=== PATIENT | female | born 1980 | race Two or more races ===

== ENCOUNTER 2020-05-23 08:50 | Outpatient (CLI) | payer BC, SELFPAY ==
--- NOTE | ~2020-05-23 | MM_ITS ---
EXAMINATION: MM screening christine BI w natali HISTORY: Screening TECHNIQUE: Craniocaudal and mediolateral oblique 3-D tomosynthesis images were obtained and synthetic 2-D images were generated. CAD analysis was submitted and interpreted. COMPARISON: No prior mammogram is available for comparison at this institution. BREAST PARENCHYMAL COMPOSITION: The breasts are extremely dense, which lowers the sensitivity of mamm ography. FINDINGS: There is no evidence of suspicious mass, calcification, or architectural distortion to sugg est malignancy in either breast. There has been no suspicious interval change. IMPRESSION: 1. No mammographic evidence of malignancy. 2. Recommend routine screening mammography in one year. BI-RADS Category 1: Negative Reviewed, dictated and finalized at location A. CDL A DRIVER
== END 2020-05-23 08:51 | disposition home or self-care (01) ==
LOC: ANHIMG 08:56
PROVIDERS: Visit Provider Nurse Practitioner
DX: Z12.31 Encounter for screening mammogram for malignant neoplasm of breast (principal)
CPT/HCPCS: 77063; 77067

== ENCOUNTER 2021-12-31 11:48 | Outpatient (CLI) | payer BC, SELFPAY ==
--- NOTE | ~2021-12-31 | MM_ITS ---
EXAMINATION: MM screening christine BI w natali HISTORY: Screening TECHNIQUE: Craniocaudal and mediolateral oblique 3-D tomosynthesis images were obtained and synthetic 2-D images were generated. CAD analysis was submitted and interpreted. COMPARISON: No prior mammogram is available for comparison at this institution. BREAST PARENCHYMAL COMPOSITION: The breasts are extremely dense, which lowers the sensitivity of mamm ography FINDINGS: There is no evidence of suspicious mass, calcification, or architectural distortion to sugg est malignancy in either breast. There has been no suspicious interval change. IMPRESSION: 1. No mammographic evidence of malignancy. 2. Recommend routine screening mammography in one year. BI-RADS Category 1: Negative Reviewed, dictated and finalized at location A.
== END 2021-12-31 11:49 | disposition home or self-care (01) ==
LOC: ANHIMG 11:50
PROVIDERS: Visit Provider Nurse Practitioner
DX: Z12.31 Encounter for screening mammogram for malignant neoplasm of breast (principal)
CPT/HCPCS: 77063; 77067

== ENCOUNTER 2023-06-01 07:41 | Outpatient (CLI) | payer BC, SELFPAY ==
--- NOTE | ~2023-06-01 | MM_ITS ---
EXAMINATION: MM screening christine BI w natali HISTORY: Screening mammogram TECHNIQUE: Craniocaudal and mediolateral oblique 3-D tomosynthesis images were obtained and synthetic 2-D images were generated. CAD analysis was submitted and interpreted. COMPARISON: 12/31/2021, 05/23/2020 BREAST PARENCHYMAL COMPOSITION:The breasts are extremely dense, which lowers the sensitivity of mammo graphy. FINDINGS: No suspicious mass, calcification, or architectural distortion are identified in either estella ast to suggest malignancy. There has been no suspicious interval change. IMPRESSION: No mammographic evidence of malignancy. Recommend routine screening mammography in one year. BI-RADS Category 1: Negative Reviewed, dictated and finalized at location . TO DOOR SELLING DISTRIBUTOR
== END 2023-06-01 07:42 | disposition home or self-care (01) ==
PROVIDERS: Visit Provider Nurse Practitioner
DX: Z12.31 Encounter for screening mammogram for malignant neoplasm of breast (principal)
CPT/HCPCS: 77063; 77067

== ENCOUNTER 2025-05-15 15:21 | Outpatient (CLI) | payer BC, SELFPAY ==
--- NOTE | ~2025-05-15 | US_ITS ---
EXAMINATION: US pelvic complete, 05/15/2025 15:23 CDT HISTORY: Abn uterine bleeding Comparison: None Technique: Santos-scale and color Doppler images were obtained. Findings: Uterus: Uterus anteverted 7.7 x 3.8 x 5.1 cm. . Endometrium 1.4 cm, no increased flow. Nonspecific heterogeneity noted of the endometrium. Right Ovary:Right ovary 2.1 x 2.1 x 2.2 cm, no adnexal mass, normal flow. Left Ovary: Left ovary 3.3 x 1.3 x 2.7 cm, no adnexal mass, normal flow. Free Fluid: None Impression: Nonspecific heterogeneity of the endometrium, six-week follow-up suggested to assess resolution Reviewed, dictated and finalized at location P. Impression: Nonspecific heterogeneity of the endometrium, six-week follow-up suggested to a ssess resolution
== END 2025-05-15 15:22 | disposition home or self-care (01) ==
LOC: MICIMG 15:21
DX: R93.89 Abnormal findings on diagnostic imaging of other specified body structures (principal); N93.8 Other specified abnormal uterine and vaginal bleeding
CPT/HCPCS: 76856